=== PATIENT | female | born 1995 | race Caucasian/White ===

== ENCOUNTER 2020-03-08 12:24 | Emergency (ER) | payer OTHER ==
[~2020-03-08] VITALS: Ht 165.1 cm; Wt 81.7 kg
[2020-03-08 14:04] VITALS: BP 132/70
== END 2020-03-08 14:05 | disposition home or self-care (01) ==
LOC: M.ERS 12:24
DX: R06.7 Sneezing (principal); Z20.828 Contact with and (suspected) exposure to other viral communicable diseases; F17.210 Nicotine dependence, cigarettes, uncomplicated

== ENCOUNTER 2021-01-01 10:57 | Emergency (ER) | payer MEDICAID ==
[~2021-01-01] VITALS: Ht 165.1 cm; Wt 84.8 kg
[2021-01-01 11:38] VITALS: BP 126/89
== END 2021-01-01 11:38 | disposition home or self-care (01) ==
LOC: M.ERS 10:57
DX: K62.5 Hemorrhage of anus and rectum (principal); K64.4 Residual hemorrhoidal skin tags; F17.210 Nicotine dependence, cigarettes, uncomplicated; Z90.89 Acquired absence of other organs